=== PATIENT | female | born 1990 ===

== ENCOUNTER 2017-10-07 14:40 | Emergency (ER) | payer OTHER ==
[2017-10-07 14:46] VITALS: BP 117/75; PULSE 110; RESP 16; TEMP 97; O2SAT 99
[2017-10-07] MEDS ORDERED: Sodium Chloride 0.9% 1,000 ML IV STA (16:05)
--- NOTE | 2017-10-07 16:19 | ED PDOC ---
HPI: Female Pain Time Seen by Provider: 10/07/17 14:54 Chief Complaint (Nursing): Female Genitourinary Chief Complaint (Provider): Hematuria History Per: Patient History/Exam Limitations: no limitations Additional Complaint(s): Pt reports hematuria X 3 weeks, associated with R sided back pain and dysuria. Denies fever, nausea, vomiting, abdominal pain. Past Medical History Reviewed: Nursing Documentation, Vital Signs Vital Signs: Last Vital Signs Temp 97.0 F L 10/07/17 14:43 Pulse 110 H 10/07/17 14:43 Resp 16 10/07/17 14:43 BP 117/75 10/07/17 14:43 Pulse Ox 99 10/07/17 14:43 - Medical History PMH: No Chronic Diseases, Kidney Stones - Surgical History Surgical History: No Surg Hx - Family History Family History: States: Unknown Family Hx - Social History Current smoker - smoking cessation education provided: No Alcohol: None - Immunization History Hx Tetanus Toxoid Vaccination: No Hx Influenza Vaccination: No Hx Pneumococcal Vaccination: No - Home Medications Home Medications: Ambulatory Orders Medication Instructions Recorded Ciprofloxacin HCl [Cipro] 250 mg PO BID #14 tab 02/04/15 Naproxen 500 mg PO Q12 #20 tab 02/04/15 Tamsulosin [Flomax] 0.4 mg PO DAILY #21 cap 02/04/15 Ciprofloxacin [Cipro] 500 mg PO BID #14 tab 04/15/16 Phenazopyridine [Phenazopyridine 200 mg PO BID #6 tab 04/15/16 HCl] - Allergies Allergies/Adverse Reactions: Allergies Allergy/AdvReac Type Severity Reaction Status Date / Time No Known Allergies Allergy Verified 02/04/15 14:56 Review of Systems Constitutional: Negative for: Fever, Chills Cardiovascular: Negative for: Chest Pain Respiratory: Negative for: Cough, Shortness of Breath Gastrointestinal: Negative for: Nausea, Vomiting, Abdominal Pain, Diarrhea Genitourinary Female: Positive for: Dysuria, Hematuria. Negative for: Vaginal Discharge, Vaginal Bleeding, Pelvic Pain Musculoskeletal: Positive for: Back Pain. Negative for: Neck Pain Skin: Negative for: Rash, Lesions Neurological: Negative for: Headache, Dizziness Physical Exam - Reviewed Nursing Documentation Reviewed: Yes Vital Signs Reviewed: Yes - Physical Exam Appears: Positive for: Well, No Acute Distress Skin: Positive for: Normal Color, Warm, Dry Eye Exam: Positive for: Normal appearance, EOMI, PERRL Cardiovascular/Chest: Positive for: Regular Rate, Rhythm Respiratory: Positive for: Normal Breath Sounds. Negative for: Rales, Rhonchi, Wheezing Gastrointestinal/Abdominal: Positive for: Normal Exam, Bowel Sounds, Soft. Negative for: Tenderness Back: Positive for: Normal Inspection. Negative for: L CVA Tenderness, R CVA Tenderness Extremity: Positive for: Normal ROM Neurologic/Psych: Positive for: Alert, Oriented - ECG O2 Sat by Pulse Oximetry: 99 Medical Decision Making Medical Decision Makin yo female with dysuria, hematuria and back pain. - labs - CT abd/pelvis - IVF - Toradol Disposition - Disposition
[2017-10-07 16:36] LABS: BASO # 0.1 K/uL (0.0-0.2); BASO % 0.7 % (0.0-2.0); EOS % 0.5 % (0.0-4.0); HEMOGLOBIN 13.8 g/dL (12.0-16.0); LYMPH # 1.8 K/uL (1.0-4.3); LYMPH % 22.6 % (20.0-40.0); MEAN CELL VOLUME 93.7 fl (81.0-99.0); MEAN CORPUSCULAR HEMOGLOBIN 32.1 pg (27.0-31.0); MEAN CORPUSCULAR HGB CONC 34.2 g/dL (33.0-37.0); MEAN PLATELET VOLUME 8.7 fl (7.2-11.7); MONO # 0.4 K/uL (0.0-0.8); MONO % 5.7 % (0.0-10.0); NEUT # 5.5 K/uL (1.8-7.0); NEUT % 70.5 % (50.0-75.0); RBC 4.31 Mil/uL (3.80-5.20); RED CELL DISTRIBUTION WIDTH 13.7 % (11.5-14.5); WHITE BLOOD COUNT 7.8 K/uL (4.8-10.8)
[2017-10-07 16:41] LABS: ALB/GLOB RATIO 1.3 (1.0-2.1); ALBUMIN 4.9 g/dL (3.5-5.0); ALT/SGPT 23 U/L (9-52); AST/SGOT 22 U/L (14-36); BLOOD UREA NITROGEN 15 mg/dl (7-17); CALCIUM 9.7 mg/dL (8.4-10.2); GFR AFRICAN-AMERICAN > 60; GFR NON-AFRICAN AMERICAN > 60
[2017-10-07] MEDS ORDERED: cefTRIAXone (Rocephin) 1 gm Inj ONE (16:46)
[2017-10-07 16:50] LABS: INR 1.1 (0.9-1.2); PARTIAL THROMBOPLASTIN TIME 35.8 Seconds (25.6-37.1); PROTHROMBIN TIME 11.7 Seconds (9.8-13.1)
[2017-10-07] MEDS ORDERED: Potassium Chloride 20 mEq ER Tab PO STA (18:17)
[2017-10-07] MEDS ORDERED: Potassium Chloride 20 mEq ER Tab PO ONE (18:56)
--- NOTE | 2017-10-07 19:21 | ED PDOC ---
- Laboratory Results Result Diagrams: 10/07/17 16:24 10/07/17 16:24 - ECG O2 Sat by Pulse Oximetry: 99 - Progress Re-evaluation Time: 21:41 Condition: Re-examined, Improved Medical Decision Making Medical Decision Making: Time: 19:00 Patient signed over to me by Dr. Casas pending CT abdomen, reevaluation, and final disposition. Time: 20:03 CT Abdomen and Pelvis: FINDINGS: LUNG BASES: No significant abnormality seen. ABDOMEN: LIVER: No acute abnormality of the liver identified. GALLBLADDER AND BILE DUCTS: No CT evidence of acute cholecystitis. No evidence of significant biliary ductal dilatation. PANCREAS: No CT evidence of acute pancreatitis. SPLEEN: No acute abnormality of the spleen identified. ADRENALS: No acute abnormality of the adrenal glands identified. KIDNEYS AND URETERS: No renal stones, hydronephrosis, or hydroureter seen. STOMACH AND BOWEL: Air and stool are seen throughout the colon, which is top normal in caliber. No evidence of a transition point, fecal impaction, or diffuse colonic dilatation. Findings are most likely secondary to a mild colonic ileus. Otherwise, no significant abnormality of the bowel is identified. No evidence of small bowel obstruction. APPENDIX: Appendix is seen, and is within normal limits in appearance. PELVIS: BLADDER: Best seen on image 144 of series 3, there is a 3 x 1.5 mm calcification in the right pelvis. This is suspicious for a 3 mm stone in the bladder lumen, just distal to the right UVJ. There is no evidence of significant right hydroureteronephrosis, however. REPRODUCTIVE:No acute abnormality of the reproductive organs is seen. No acute abnormality of the uterus identified. No evidence of large adnexal masses. ABDOMEN and PELVIS: INTRAPERITONEAL SPACE: No evidence of free intraperitoneal air or fluid. BONES/JOINTS: No acute fractures or other acute bony abnormality noted. SOFT TISSUES: No acute abnormality of the visualized soft tissues is seen. VASCULATURE: No evidence of abdominal aortic aneurysm. No evidence of periaortic hemorrhage. LYMPH NODES: No evidence of diffuse lymphadenopathy. IMPRESSION: - Findings suspicious for a 3 mm stone in the bladder, just distal to the right UVJ. There is no evidence of significant right hydroureteronephrosis, however. Recommend clinical correlation. - Colonic findings which are most likely secondary to a mild ileus. - Otherwise, no evidence of significant acute process on this unenhanced exam. - See above for remaining findings. Scribe Attestation: Documented by Angel Reza, acting as a scribe for Carlos Merchant MD. Provider Scribe Attestation: All medical record entries made by the Scribe were at my direction and personally dictated by me. I have reviewed the chart and agree that the record accurately reflects my personal performance of the history, physical exam, medical decision making, and the department course for this patient. I have also personally directed, reviewed, and agree with the discharge instructions and disposition. Disposition Doctor Will See Patient In The: Office Counseled Patient/Family Regarding: Studies Performed, Diagnosis, Need For Followup - Clinical Impression Clinical Impression: Urinary tract infection, Kidney stones - POA Present On Arrival: None - Disposition Referrals: Daniel Moulton DO [Doctor Oste[facility]] - Filiberto Rg MD [Staff Provider] - Disposition: Routine/Home Disposition Time: 21:42 Condition: GOOD Additional Instructions: Take your medications as instructed. Follow up with your PCP in 2-3 days. Return for worsening. Prescriptions: Ciprofloxacin [Cipro] 500 mg PO BID #14 tab Tamsulosin [Flomax] 0.4 mg PO DAILY #14 cap Instructions: Urinary Tract Infections in Adults, Kidney Stones in Adults Forms: [employer] (Frisian)
--- NOTE | 2017-10-07 20:04 | CT ---
EXAM: CT Abdomen and Pelvis Without Intravenous Contrast EXAM DATE/TIME: 10/07/2017 4:04 PM CLINICAL HISTORY: 26 years old, female; Pain; Abdominal pain; Flank; Right; Additional info: R flank pain, hematuria TECHNIQUE: Axial computed tomography images of the abdomen and pelvis without intravenous contrast. All CT scans at this facility use one or more dose reduction techniques, viz.: automated exposure control; ma/kV adjustment per patient size (including targeted exams where dose is matched to indication; i.e. head); or iterative reconstruction technique. Coronal and sagittal reformatted images were created and reviewed. COMPARISON: No relevant prior studies available. FINDINGS: LUNG BASES: No significant abnormality seen. ABDOMEN: LIVER: No acute abnormality of the liver identified. GALLBLADDER AND BILE DUCTS: No CT evidence of acute cholecystitis. No evidence of significant biliary ductal dilatation. PANCREAS: No CT evidence of acute pancreatitis. SPLEEN: No acute abnormality of the spleen identified. ADRENALS: No acute abnormality of the adrenal glands identified. KIDNEYS AND URETERS: No renal stones, hydronephrosis, or hydroureter seen. STOMACH AND BOWEL: Air and stool are seen throughout the colon, which is top normal in caliber. No evidence of a transition point, fecal impaction, or diffuse colonic dilatation. Findings are most likely secondary to a mild colonic ileus. Otherwise, no significant abnormality of the bowel is identified. No evidence of small bowel obstruction. APPENDIX: Appendix is seen, and is within normal limits in appearance. PELVIS: BLADDER: Best seen on image 144 of series 3, there is a 3 x 1.5 mm calcification in the right pelvis. This is suspicious for a 3 mm stone in the bladder lumen, just distal to the right UVJ. There is no evidence of significant right hydroureteronephrosis, however. REPRODUCTIVE:No acute abnormality of the reproductive organs is seen. No acute abnormality of the uterus identified. No evidence of large adnexal masses. ABDOMEN and PELVIS: INTRAPERITONEAL SPACE: No evidence of free intraperitoneal air or fluid. BONES/JOINTS: No acute fractures or other acute bony abnormality noted. SOFT TISSUES: No acute abnormality of the visualized soft tissues is seen. VASCULATURE: No evidence of abdominal aortic aneurysm. No evidence of periaortic hemorrhage. LYMPH NODES: No evidence of diffuse lymphadenopathy. IMPRESSION: - Findings suspicious for a 3 mm stone in the bladder, just distal to the right UVJ. There is no evidence of significant right hydroureteronephrosis, however. Recommend clinical correlation. - Colonic findings which are most likely secondary to a mild ileus. - Otherwise, no evidence of significant acute process on this unenhanced exam. - See above for remaining findings.
== END 2017-10-07 22:20 | disposition home or self-care (01) ==
LOC: H.ER 14:40
DX: N39.0 Urinary tract infection, site not specified (principal); N20.0 Calculus of kidney
CPT/HCPCS: 74176; 80053; 81025; 85025; 85610; 85730; 96365; 96375; 96376; 99283; J0696; J1885; J7040